=== PATIENT | female | born 1975 | race African-American/Black ===

== ENCOUNTER 2022-02-09 13:12 | Inpatient (IN) | payer BC ==
[~2022-02-09] VITALS: Ht 175.3 cm; Wt 119.7 kg
--- NOTE | 2022-02-09 14:20 | NUR ---
BIBS FOR C/O MARIKA LOWER LEG EDEMA AND PAIN 5/10, MARIKA HAND PAIN AND NUMBNESS. THE PATIENT IS ALERT AND ORIENTED X4. IN ROOM AIR AND DENIES SOB. RESPIRATION REGULAR AND UNLABORED. ATTACHED TO THE MONITOR. WARM BLANKET PROVIDED FOR COMFORT. WILL CONTINUE TO MONITOR THE PATIENT.
--- NOTE | 2022-02-09 14:40 | NUR ---
URINE COLLECTED AND SENT TO THE LAB
--- NOTE | 2022-02-09 14:54 | NUR ---
ULTRASOUND AT BEDSIDE
--- NOTE | 2022-02-09 14:57 | NUR ---
IV LINE IS ESTABLISHED, BLOOD SPECIMEN COLLECTED AND SENT TO THE LAB. THE LINE IS SALINE LOCKED.
--- NOTE | 2022-02-09 14:58 | NUR ---
US TECH AT THE BEDSIDE
[2022-02-09 15:06] LABS: BILIRUBIN,URINE NEGATIVE (NEGATIVE); COLOR,URINE YELLOW (YELLOW); LEUKOCYTE ESTERASE ,URINE NEGATIVE (NEGATIVE); NITRITE, URINE NEGATIVE (NEGATIVE); PH,URINE 5.5 (5.0-8.0); PROTEIN,URINE NEGATIVE (NEGATIVE); UGLUCOSE NEGATIVE (NEGATIVE); UROBILINOGEN,URINE 0.2 EU/dL (0.2)
[2022-02-09 15:10] LABS: BASOPHILS % (AUTO) 0.4 % (0.0-2.0); EOSINOPHILS % (AUTO) 4.9 % (0.0-6.0); HEMATOCRIT 36 % (33-45); HEMOGLOBIN 12.1 g/dL (11.5-14.8); LYMPHOCYTES # (AUTO) 1.8 K/uL (0.8-4.8); LYMPHOCYTES % (AUTO) 27.8 % (20.0-44.0); MEAN CORPUSCULAR HGB CONC 34 g/dl (31.0-36.0); MEAN CORPUSCULAR VOLUME 86 fL (82-100); MONOCYTES # (AUTO) 0.7 K/uL (0.1-1.30); MONOCYTES % (AUTO) 10.4 % (2.0-12.0); NEUTROPHILS # (AUTO) 3.6 K/uL (1.8-8.9); NEUTROPHILS % (AUTO) 56.5 % (43.0-81.0); PLATELET COUNT (AUTO) 230 K/uL (150-450); RED BLOOD CELL COUNT(AUTO) 4.15 MIL/uL (4.0-5.2); WHITE BLOOD COUNT (AUTO) 6.4 K/uL (4.3-11.0)
--- NOTE | 2022-02-09 15:24 | NUR ---
PT RETURNED FROM [facility]
[2022-02-09 15:26] LABS: CALCIUM, SERUM 8.5 mg/dL (8.5-10.1); CARBON DIOXIDE 33 mmol/L (21-32); CHLORIDE 103 mmol/L (98-107); CREATININE 0.8 mg/dL (0.6-1.3); GLUCOSE 120 mg/dL (74-106); POTASSIUM 3.9 mmol/L (3.5-5.1); SODIUM SERUM 139 mmol/L (136-145); UREA NITROGEN, BLOOD 13 mg/dL (7-18)
[2022-02-09 15:39] LABS: ALANINE AMINOTRANSFERASE 38 U/L (12-78); ALBUMIN 3.5 g/dL (3.4-5.0); ALKALINE PHOSPHATASE 115 U/L (46-116); BILIRUBIN,DIRECT 0.1 mg/dL (0.0-0.2); BILIRUBIN,TOTAL 0.3 mg/dL (0.2-1.0)
[2022-02-09 15:53] LABS: ASPARTATE AMINOTRANSFERASE 29 U/L (15-37)
[2022-02-09 16:29] LABS: MAGNESIUM 1.9 mg/dL (1.8-2.4)
[2022-02-09] MEDS ORDERED: BUPR1FIL23 SL (16:32)
[2022-02-09] MEDS ORDERED: GABA300C PO (16:32)
[2022-02-09] MEDS ORDERED: DOXE10CA2 PO (16:32)
--- NOTE | 2022-02-09 16:44 | NUR ---
COVID SWAB SPECIMEN OBTAINED.
[2022-02-09] MEDS ORDERED: ONDANSETRON HCL/PF 4 MG/2 ML VIAL IVP PRN (17:00)
[2022-02-09] MEDS ORDERED: MORPHINE SULFATE INJ 2 MG/ML DISP.SYRIN IV PRN (17:00)
[2022-02-09] MEDS ORDERED: ACETAMINOPHEN 325 MG TABLET PO PRN (17:00)
--- NOTE | 2022-02-09 20:21 | NUR ---
TELE 325-2
[2022-02-09] MEDS: HEPARIN SODIUM, PORCINE 5000 UNITS/1 ML VIAL SQ SCH (21:00)
--- NOTE | 2022-02-09 21:01 | NUR ---
REPORT GIVEN TO STUART TINAJERO FOR TATE
[2022-02-09 21:15] VITALS: BP 133/75
--- NOTE | 2022-02-09 21:15 | NUR ---
PATIENT ARRIVED ON THE FLOOR FROM ER, AWAKE, A/O X4. NO S/S OF DISTRESS NOTED. NO COMPLAIN OF PAIN. CALL LIGHT WITHIN REACH. BED IN LOWEST AND LOCKED POSITION.
--- NOTE | 2022-02-09 21:17 | NUR ---
PT TRANSPORTED TO 3RD FLOOR
--- NOTE | 2022-02-09 22:24 | NUR ---
CALLED [facility] RE: PATIENT'S HOME MEDS RECONCILIATIONS.
--- NOTE | 2022-02-09 22:29 | NUR ---
W[facility] DR LEMOS.
--- NOTE | 2022-02-09 23:00 | NUR ---
RECEIVED THE CALL BACK FROM DR LEMOS RE:INFORMED MD THAT THE PATIENT IS REQUESTING TO HAVE ALL HER HOME MEDS TO BE GIVEN TONIGHT. PER , ALL HER HOME MEDS WILL BE TAKEN CARED TOMORROW IN THE DAYSHIFT TEAM. PATIENT MADE AWARE.
[2022-02-10] VITALS: BP 106/66
--- NOTE | 2022-02-10 00:32 | NUR ---
PATIENT PULLED HER IV OUT.
[2022-02-10] MEDS: HEPARIN SODIUM, PORCINE 5000 UNITS/1 ML VIAL SQ SCH ×2 (01:22→09:24)
[2022-02-10 04:00] VITALS: BP 103/81
[2022-02-10 06:58] LABS: ALBUMIN 3.3 g/dL (3.4-5.0); BILIRUBIN,TOTAL 0.2 mg/dL (0.2-1.0); CALCIUM, SERUM 8.5 mg/dL (8.5-10.1); CREATININE 0.9 mg/dL (0.6-1.3); PHOSPHORUS 4.1 mg/dL (2.5-4.9); POTASSIUM 3.8 mmol/L (3.5-5.1); TOTAL PROTEIN, SERUM 7.8 g/dL (6.4-8.2)
[2022-02-10 07:01] LABS: BASOPHILS % (AUTO) 0.3 % (0.0-2.0); EOSINOPHILS % (AUTO) 4.5 % (0.0-6.0); HEMATOCRIT 35 % (33-45); HEMOGLOBIN 11.9 g/dL (11.5-14.8); MEAN CORPUSCULAR HGB CONC 34 g/dl (31.0-36.0); MEAN CORPUSCULAR VOLUME 87 fL (82-100); MONOCYTES # (AUTO) 0.5 K/uL (0.1-1.30); MONOCYTES % (AUTO) 9.2 % (2.0-12.0); NEUTROPHILS # (AUTO) 2.7 K/uL (1.8-8.9); PLATELET COUNT (AUTO) 228 K/uL (150-450); RED BLOOD CELL COUNT(AUTO) 4.04 MIL/uL (4.0-5.2); WHITE BLOOD COUNT (AUTO) 5.5 K/uL (4.3-11.0)
--- NOTE | 2022-02-10 07:18 | NUR ---
PIG BREEDER OPENING NOTE RECEIVED PATIENT IN BED, AWAKE, A/O X4. NO S/S OF DISTRESS NOTED. PATIEINT ON ROOM AIR WITH NO SIGNS OF DISTRESS. WITH IV ACCESS ON THE RIGHT HAND G 22 ON SALINE LOCK. NO COMPLAIN OF PAIN OR DISCOMFORT AT THIS TIME. SAFETY MEASURES ENSURED WITH BED ON LOWEST LOCKED POSITION, CALL LIGHT AND BEDSIDE TABLE WITHIN REACH.
[2022-02-10] MEDS ORDERED: BUPRENORPHINE HCL 2 MG TAB.SUBL SL SCH (09:00)
[2022-02-10] MEDS ORDERED: [UNRECOGNIZED DRUG - OTHER] SL SCH (09:00)
[2022-02-10] MEDS ORDERED: GABAPENTIN 300 MG CAPSULE PO SCH (09:00)
[2022-02-10] MEDS ORDERED: NALOXONE HCL SL SCH (09:00)
[2022-02-10] MEDS ORDERED: BUPRENORPHINE HCL SL SCH (09:00)
--- NOTE | 2022-02-10 09:30 | NUR ---
MS RN NOTE FRIEND WILL BRING MEDICATION PER PHARMACIST INSTRUCTION.
--- NOTE | 2022-02-10 10:15 | NUR ---
MS RN NOTE SEEN BY DR. VIVEROS WITH ORDER FOR DISCHARGE ONCE CLEARED BY PT. HEALTH TEACHING DONE REGARDING DISCHARGE AND DISCHARGE INSTRUCTIONS. PATIENT VERBALIZED UNDERSTANDING AND APPRECIATION.
[2022-02-10 11:07] LABS: *ANA ANTI-CENTROMERE B AB <0.2 AI (0.0-0.9); *ANA ANTI-DNA(DS) AB, QN <1 IU/mL (0-9); *ANA ANTI-JO-1 <0.2 AI (0.0-0.9); *ANA ANTICHROMATIN ANTIBODY <0.2 AI (0.0-0.9); *ANA RNP ANTIBODIES 0.3 AI (0.0-0.9); *ANA SJOGREN'S ANTI-SS-A <0.2 AI (0.0-0.9); *ANA SJOGREN'S ANTI-SS-B <0.2 AI (0.0-0.9); *ANAANTI-SCLERODERMA-70 AB <0.2 AI (0.0-0.9); *ANASMITH AB <0.2 AI (0.0-0.9)
--- NOTE | 2022-02-10 11:30 | NUR ---
MS RN NOTE DISCHARGED ORDERED ONCE CLEARED BY PT. INITIALLY REFUSED TO SIGN PAPERS BUT SIGNED IT EVENTUALLY. PATIENT WAS VERY EAGER TO GO HOME BECAUSE SHE WANTS TO SMOKE. IV ACCESS REMOVED AND COVERED WITH DRY DRESSING. DISCHARGED ORDERED. ACCOMPANIED BY FRIEND TO LOBBY. IN STABLE CONDITION.
[2022-02-10] MEDS ORDERED: DOXEPIN HCL 10 MG CAPSULE PO SCH (22:00)
[2022-03-30] MEDS ORDERED: IBUP-1957 PO (11:55)
== END 2022-02-10 11:00 | disposition home or self-care (01) | DRG 948 ==
LOC: ER 13:12 → MED 20:46 → TELE 02-10 01:03 → MED 02-10 09:28
PROVIDERS: ADMIT Internal Medicine; ATTEND Internal Medicine
DX: R53.1 Weakness (principal); Z20.822 Contact with and (suspected) exposure to COVID-19; F14.11 Cocaine abuse, in remission; Z79.899 Other long term (current) drug therapy; R79.82 Elevated C-reactive protein (CRP); R70.0 Elevated erythrocyte sedimentation rate
CPT/HCPCS: 36415; 70450-TC; 71045-TC; 72125-TC; 72128-TC; 72131-TC; 80048-TC; 80053-TC; 80076-TC; 82550-TC; 83735-TC; 83880; 84100-TC; 84484-TC; 84703-TC; 85025-TC; 85652-TC; 86140-TC; 86225; 86235; 86592; 86593; 87081-TC; 93307-TC; 93970-TC; 97116-TC; 97530-TC; C9803; G0378; J1644

== ENCOUNTER → 2022-03-30 | Emergency (ER) | payer BC ==
[~2022-03-30] VITALS: Ht 167.6 cm; Wt 108.0 kg
[~2022-03-30] MED LIST: BUPR1FIL23 SL; DOXE10CA2 PO; GABA300C PO; IBUP-1957 PO; IBUPROFEN 400 MG TABLET ONE; IBUPROFEN 400 MG TABLET PO ONE; diphenhydrAMINE HCL 50 MG/ML VIAL IM ONE; diphenhydrAMINE HCL 50 MG/ML VIAL ONE
--- NOTE | 2022-03-30 10:51 | NUR ---
BIBS C/O L ELBOW PAIN, DENIES FALL OR INJURY.
[2022-03-30 12:02] VITALS: BP 132/89
--- NOTE | 2022-03-30 12:02 | NUR ---
Patient discharged to home in stable condition. Written and verbal after care instructions given. Patient verbalizes understanding of instruction.
== END | disposition home or self-care (01) ==
LOC: ER 11:00
DX: S53.402A Unspecified sprain of left elbow, initial encounter (principal); G24.09 Other drug induced dystonia; Z88.0 Allergy status to penicillin; Z88.1 Allergy status to other antibiotic agents; Z91.040 Latex allergy status; Z60.2 Problems related to living alone; Z79.899 Other long term (current) drug therapy; X58.XXXA Exposure to other specified factors, initial encounter; Y93.89 Activity, other specified; Y92.89 Other specified places as the place of occurrence of the external cause; Y99.8 Other external cause status
CPT/HCPCS: 99283; 96372; 73080; J1200